=== PATIENT | male | born 1990 | race Hispanic/Latino ===

== ENCOUNTER 2017-02-13 14:00 | Emergency (ER) | payer OTHER ==
[2017-02-13 14:06] VITALS: TEMP 98; O2SAT 98; BMI 21.1
--- NOTE | 2017-02-13 14:18 | ED PDOC ---
Arrival/HPI - General Chief Complaint: Abnormal Skin Integrity Time Seen by Provider: 02/13/17 14:16 Historian: Patient - History of Present Illness Narrative History of Present Illness (Text): 02/13/17 14:17 26 y/o male, no pmh, nkda, last tetanus under 4 years ago, c/o rt. hand laceration by glass x 1 hour. Pt. was washing the dishes, one of the glass cup break and sliced the rt. hand, been bleeding, skin flap on top of the wound, no oozing/discharge, no fever or chills, no difficulty moving the finger, no numbness or tingling, no other medical or psychological complaints. Past Medical History - Provider Review Nursing Documentation Reviewed: Yes - Infectious Disease Hx of Infectious Diseases: None - Tetanus Immunization Tetanus Immunization: Unknown - Past Medical History Past Medical History: No Previous - Psychiatric Hx Anxiety: Yes Hx Depression: No Hx Emotional Abuse: No Hx Physical Abuse: No Hx Substance Use: No - Surgical History Hx Arthroscopy: Yes (right knee) Hx Orthopedic Surgery: Yes (r knee torn meniscus) - Anesthesia Hx Anesthesia: Yes Hx Anesthesia Reactions: (woke up during surgery) Hx Malignant Hyperthermia: No - Suicidal Assessment Feels Threatened In Home Enviroment: No Family/Social History - Physician Review Nursing Documentation Reviewed: Yes Family/Social History: Unknown Family HX Smoking Status: Never Smoked Hx Alcohol Use: Yes Frequency of alcohol use: Socially Hx Substance Use: No Hx Substance Use Treatment: No Allergies/Home Meds Allergies/Adverse Reactions: Allergies No Known Allergies Allergy (Verified 02/13/17 14:05) Review of Systems - Review of Systems Constitutional: absent: Fatigue, Fevers Eyes: absent: Vision Changes ENT: absent: Hearing Changes Respiratory: absent: SOB, Cough Cardiovascular: absent: Chest Pain Gastrointestinal: absent: Abdominal Pain, Nausea, Vomiting Skin: Laceration. absent: Rash, Pruritis, Abscess, Ulcer, Cellulitis Neurological: absent: Headache, Dizziness Physical Exam Vital Signs Reviewed: Yes Vital Signs Temp Pulse Resp BP Pulse Ox 02/13/17 14:02 98 F 87 18 130/91 H 98 Temperature: Afebrile Blood Pressure: Hypertensive Pulse: Regular Respiratory Rate: Normal Appearance: Positive for: Well-Appearing, Non-Toxic, Comfortable Pain Distress: Mild Mental Status: Positive for: Alert and Oriented X 3 - Systems Exam Head: Present: Atraumatic, Normocephalic Pupils: Present: PERRL Extroacular Muscles: Present: EOMI Conjunctiva: Present: Normal Mouth: Present: Moist Mucous Membranes Neck: Present: Normal Range of Motion Respiratory/Chest: Present: Clear to Auscultation, Good Air Exchange. No: Respiratory Distress, Accessory Muscle Use Cardiovascular: Present: Regular Rate and Rhythm, Normal S1, S2. No: Murmurs Abdomen: Present: Normal Bowel Sounds. No: Tenderness, Distention, Peritoneal Signs Back: Present: Normal Inspection Upper Extremity: Present: Normal Inspection, Other (Rt. hand dorsum 2nd MCPJ region with c-shaped laceration approx. 1.5cm in total, no oozing discharge, FROM without limitation, sensation intact, motor 5/5, +radial pulse, capillary refill< 2 seconds, neurovascular intact. ). No: Cyanosis, Edema Lower Extremity: Present: Normal Inspection. No: Edema Neurological: Present: GCS=15, Speech Normal, Motor Func Grossly Intact, Gait Normal, Memory Normal Skin: Present: Warm, Dry, Normal Color. No: Rashes Psychiatric: Present: Alert, Oriented x 3, Normal Insight, Normal Concentration Medical Decision Making ED Course and Treatment: 02/13/17 14:17 -xray/keflex -sensation intact, motor 5/5, wound irrigated with 1000cc of normal saline, clean with betadine, 1% lidocaine injected locally with 0.25cc, sterile procedure, 5-0 nylon made 8 sutures with good approximation, hemostasis obtained , bacitracin and gauze dressing applied, sensation intact, motor 5/5, no complication during the procedure. -Discharge home with keflex, bacitracin ointment, keep the dressing dry and clean for 2 days, wash with soap and water twice daily on day 3, sutures can be removed by day 10-11, avoid strenuous exercise or activity, follow up with your own pmd and hand specialist within 2 days, return to the ER for any new or worsening signs or symptoms. - RAD Interpretation Radiology Orders: 02/13/17 14:20 HAND RIGHT 3 VIEWS [RAD] Stat PROCEDURE: Right Hand Radiographs. HISTORY: rt. hand dorsum laceration by glass COMPARISON: None. FINDINGS: BONES: Normal. No fracture. JOINTS: Normal. No osteoarthritic changes. SOFT TISSUES: Normal. OTHER FINDINGS: No evidence of foreign body None. IMPRESSION: Negative study Emergency Registrar: Radiologist - Medication Orders Current Medication Orders: Discontinued Medications Cephalexin Monohydrate (Keflex) 500 mg PO STAT STA PRN Reason: Protocol Stop: 02/13/17 14:21 Last Admin: 02/13/17 14:40 Dose: 500 mg - PA / [employer]PER[employer] / Resident Statement / has reviewed & agrees with the documentation as recorded. Disposition/Present on Arrival - Present on Arrival Any Indicators Present on Arrival: No History of DVT/PE: No History of Uncontrolled Diabetes: No Urinary Catheter: No History of Decub. Ulcer: No History Surgical Site Infection Following: None - Disposition Have Diagnosis and Disposition been Completed?: Yes Diagnosis: Laceration of hand Disposition: HOME/ ROUTINE Disposition Time: 14:26 Patient Plan: Discharge Patient Problems: Current Active Problems Problem Status Onset Laceration of hand Acute Condition: GOOD Additional Instructions: -Discharge home with keflex, bacitracin ointment, keep the dressing dry and clean for 2 days, wash with soap and water twice daily on day 3, sutures can be removed by day 10-11, avoid strenuous exercise or activity, follow up with your own pmd and hand specialist within 2 days, return to the ER for any new or worsening signs or symptoms. Prescriptions: Bacitracin Ointment [Bacitracin] 1 appful TOP BID #15 g Cephalexin [Keflex] 500 mg PO TID #24 capsule Referrals: Daisha Frank MD [Non-Staff] - Follow up with primary [facility] at [facility] [Outside] - Follow up with primary Forms: WORK NOTE
--- NOTE | 2017-02-13 15:00 | RAD ---
PROCEDURE: Right Hand Radiographs. HISTORY: rt. hand dorsum laceration by glass COMPARISON: None. FINDINGS: BONES: Normal. No fracture. JOINTS: Normal. No osteoarthritic changes. SOFT TISSUES: Normal. OTHER FINDINGS: No evidence of foreign body None. IMPRESSION: Negative study
[2017-02-13 16:05] VITALS: BP 123/82; PULSE 75; RESP 19
== END 2017-02-13 16:07 | disposition home or self-care (01) ==
LOC: ED 14:00
DX: S61.411A Laceration without foreign body of right hand, initial encounter (principal); W25.XXXA Contact with sharp glass, initial encounter

== ENCOUNTER 2018-03-07 16:10 | Emergency (ER) | payer OTHER ==
[2018-03-07 16:30] VITALS: TEMP 98.6; BMI 22.4
[2018-03-07] MEDS ORDERED: TDAP Vaccine 0.5 mL Syr IM ONE (16:51)
--- NOTE | 2018-03-07 17:09 | ED PDOC ---
Arrival/HPI - General Chief Complaint: Trauma Time Seen by Provider: 03/07/18 16:21 Historian: Patient - History of Present Illness Narrative History of Present Illness (Text): 03/07/18 17:33 27 yo M, who works at [employer] reports sustaining head injury when he was walking through the garage door opening, he thought he was cleared to walk through however as he was walking he stood up too early and struck the top of his head on the door. Otherwise: (-) loss of consciousness, (-) nausea, (-) vomiting, (-) severe headache, (-) other injury, (-) neck pain, (-) subjective neurologic deficit, (-) anticoagulants. Has no history of prior significant head injury. Past Medical History - Infectious Disease Hx of Infectious Diseases: None - Tetanus Immunization Tetanus Immunization: Unknown - Past Medical History Past Medical History: No Previous - Psychiatric Hx Anxiety: Yes Hx Depression: No Hx Emotional Abuse: No Hx Physical Abuse: No Hx Substance Use: No - Surgical History Hx Arthroscopy: Yes (right knee) Hx Orthopedic Surgery: Yes (r knee torn meniscus) - Anesthesia Hx Anesthesia: Yes Hx Anesthesia Reactions: (woke up during surgery) Hx Malignant Hyperthermia: No - Suicidal Assessment Feels Threatened In Home Enviroment: No Family/Social History Family/Social History: No Known Family HX Smoking Status: Never Smoked Hx Alcohol Use: Yes Frequency of alcohol use: Socially Hx Substance Use: No Hx Substance Use Treatment: No Allergies/Home Meds Allergies/Adverse Reactions: Allergies No Known Allergies Allergy (Verified 02/13/17 14:05) Review of Systems - Review of Systems Constitutional: absent: Fatigue, Weight Change, Fevers Respiratory: absent: SOB, Cough, Sputum Cardiovascular: absent: Chest Pain, Palpitations Gastrointestinal: absent: Abdominal Pain, Stool Changes, Nausea, Vomiting Genitourinary Male: absent: Dysuria, Frequency Musculoskeletal: absent: Arthralgias, Back Pain, Neck Pain Skin: absent: Rash, Pruritis, Skin Lesions Neurological: Other (head injury). absent: Headache, Dizziness Physical Exam Vital Signs Temp Pulse Resp BP Pulse Ox 03/07/18 17:23 98.6 F 83 18 122/79 99 03/07/18 16:20 98.6 F 82 132/84 18 L Temperature: Afebrile Blood Pressure: Normal Pulse: Regular Respiratory Rate: Normal Appearance: Positive for: Well-Appearing, Non-Toxic, Comfortable Pain Distress: None Mental Status: Positive for: Alert and Oriented X 3 - Systems Exam Head: Present: Normocephalic, Abrasion (to the parietal scalp without hematoma) . No: Swelling, Ecchymosis, Laceration Pupils: Present: PERRL Extroacular Muscles: Present: EOMI Conjunctiva: Present: Normal Mouth: Present: Moist Mucous Membranes Neck: Present: Normal Range of Motion. No: MIDLINE TENDERNESS, Paraspinal Tenderness Respiratory/Chest: Present: Clear to Auscultation, Good Air Exchange. No: Respiratory Distress, Accessory Muscle Use Cardiovascular: Present: Regular Rate and Rhythm, Normal S1, S2. No: Murmurs Abdomen: No: Tenderness, Distention, Peritoneal Signs Back: Present: Normal Inspection. No: Midline Tenderness, Paraspinal Tenderness Upper Extremity: Present: Normal Inspection, Normal ROM, NORMAL PULSES, Neurovascularly Intact, Capillary Refill < 2s. No: Cyanosis, Edema, Tenderness , Swelling, Temperature Abnormalties Lower Extremity: Present: Normal Inspection, NORMAL PULSES, Normal ROM, Neurovascularly Intact, Capillary Refill < 2 s. No: Edema, Tenderness, Swelling , Temperature Abnormalties Neurological: Present: GCS=15, CN II-XII Intact, Speech Normal, Motor Func Grossly Intact, Normal Sensory Function Skin: Present: Warm, Dry, Normal Color. No: Rashes Psychiatric: Present: Alert, Oriented x 3, Normal Insight, Normal Concentration Medical Decision Making ED Course and Treatment: 03/07/18 17:37 Plan : - Tdap IM - Tylenol PO Patient instructed to follow-up with rosa'lakshmi brennan in 1-2 days without fail. Advised to take tylenol prn for pain. Return to the emergency room at any time for any new or worsening symptoms. Patient states he fully agrees with and understands discharge instructions. States that he agrees with the plan and disposition. Verbalized and repeated discharge instructions and plan. I have given the patient opportunity to ask any additional questions. - Medication Orders Current Medication Orders: Discontinued Medications Acetaminophen (Tylenol 325mg Tab) 650 mg PO STAT STA Stop: 03/07/18 16:52 Last Admin: 03/07/18 17:16 Dose: 650 mg Tetanus/Reduced Diphtheria/Acell Pertussis (Boostrix Vaccine Inj) 0.5 ml IM .ONCE ONE Stop: 03/07/18 16:52 Last Admin: 03/07/18 17:15 Dose: 0.5 ml Immunization Registry Document 03/07/18 17:15 HI (Rec: 03/07/18 17:15 HI [id number]) Immunization Registry Consent Date 03/07/18 - PA / POT LINER / Resident Statement / has reviewed & agrees with the documentation as recorded. Disposition/Present on Arrival - Present on Arrival Any Indicators Present on Arrival: No History of DVT/PE: No History of Uncontrolled Diabetes: No Urinary Catheter: No History of Decub. Ulcer: No History Surgical Site Infection Following: None - Disposition Have Diagnosis and Disposition been Completed?: Yes Diagnosis: Head injury Disposition: HOME/ ROUTINE Disposition Time: 16:45 Patient Plan: Discharge Condition: STABLE Discharge Instructions (ExitCare): Closed Head Injury Additional Instructions: Thank you for letting us take care of you today. You were treated for head injury. The emergency medical care you received today was directed at your acute symptoms. Take only tylenol for pain. It may take several days for your symptoms to resolve. Return to the Emergency Department if your symptoms worsen , do not improve, or if you have any other problems. Please contact workman's comp in 2 days for re-evaluation and follow up. Bring any paperwork you were given at discharge with you along with any medications you are taking to your follow up visit. Our treatment cannot replace ongoing medical care by a primary care provider (PCP) outside of the emergency department. Thank you for allowing the [facility] team to be part of your care today. Forms: [employer] (Chinese), WORK NOTE
[2018-03-07 17:24] VITALS: BP 122/79; PULSE 83; RESP 18; O2SAT 99
== END 2018-03-07 17:23 | disposition home or self-care (01) ==
LOC: ED 16:10
DX: S09.90XA Unspecified injury of head, initial encounter (principal); W22.09XA Striking against other stationary object, initial encounter; Y92.512 Supermarket, store or market as the place of occurrence of the external cause; Y99.0 Civilian activity done for income or pay; Z23 Encounter for immunization

== ENCOUNTER 2018-12-16 08:32 | Emergency (ER) | payer OTHER ==
[2018-12-16 08:32] VITALS: BMI 21.1
--- NOTE | 2018-12-16 08:47 | ED PDOC ---
Arrival/HPI - General Chief Complaint: Anxiety Time Seen by Provider: 12/16/18 08:36 Historian: Patient, Other (girlfriend) - History of Present Illness Time/Duration: Prior to Arrival Symptom Onset: Sudden Symptom Course: Improving Severity Level: Moderate Activities at Onset: Sleeping Associated Symptoms (Text): 12/16/18 08:45 Patient reports a history of anxiety. He is seen at [facility]. He has never been on medication before. He started taking a new medication several days ago for his anxiety. He woke up this morning took his pill went back to bed and ten or 15 minutes later had a severe anxiety attack accompanied by palpitations and shortness of breath which is currently improving. No chest pain. No nausea or vomiting. No diaphoresis. He denies depression. Denies suicidal or homicidal ideation. No visual or auditory hallucinations. Past Medical History - Infectious Disease Hx of Infectious Diseases: None - Tetanus Immunization Tetanus Immunization: Unknown - Past Medical History Past Medical History: No Previous - Psychiatric Hx Anxiety: Yes Hx Depression: No Hx Emotional Abuse: No Hx Physical Abuse: No Hx Substance Use: No - Surgical History Hx Arthroscopy: Yes (right knee) Hx Orthopedic Surgery: Yes (r knee torn meniscus) - Anesthesia Hx Anesthesia: Yes Hx Anesthesia Reactions: (woke up during surgery) Hx Malignant Hyperthermia: No - Suicidal Assessment Feels Threatened In Home Enviroment: No Family/Social History - Physician Review Nursing Documentation Reviewed: Yes Family/Social History: Unknown Family HX Smoking Status: Never Smoked Hx Alcohol Use: Yes Frequency of alcohol use: Socially Hx Substance Use: No Hx Substance Use Treatment: No Allergies/Home Meds Allergies/Adverse Reactions: Allergies No Known Allergies Allergy (Verified 12/16/18 08:38) Review of Systems - Physician Review All systems were reviewed & negative as marked: Yes - Review of Systems Respiratory: SOB. absent: Cough, Wheezing Cardiovascular: Palpitations. absent: Chest Pain, Syncope Gastrointestinal: absent: Abdominal Pain, Nausea, Vomiting Neurological: absent: Headache, Dizziness, Focal Weakness Psychiatric: Anxiety. absent: Depression, Suicidal Ideation Physical Exam Temperature: Afebrile Blood Pressure: Normal Pulse: Regular Respiratory Rate: Normal Appearance: Positive for: Well-Appearing, Non-Toxic, Comfortable, Other (anxious) Pain Distress: None Mental Status: Positive for: Alert and Oriented X 3 - Systems Exam Head: Present: Atraumatic, Normocephalic Pupils: Present: PERRL Extroacular Muscles: Present: EOMI Conjunctiva: Present: Normal Mouth: Present: Moist Mucous Membranes Pharnyx: No: ERYTHEMA, EXUDATE, TONSILS ENLARGED Neck: Present: Normal Range of Motion Respiratory/Chest: Present: Clear to Auscultation, Good Air Exchange. No: Respiratory Distress, Accessory Muscle Use Cardiovascular: Present: Regular Rate and Rhythm, Normal S1, S2. No: Murmurs Abdomen: No: Tenderness, Distention, Peritoneal Signs, Rebound, Guarding Upper Extremity: Present: Normal Inspection. No: Cyanosis, Edema Lower Extremity: Present: Normal Inspection. No: Edema Neurological: Present: GCS=15, CN II-XII Intact, Speech Normal, Motor Func Grossly Intact Skin: Present: Warm, Dry, Normal Color. No: Rashes Psychiatric: Present: Alert, Oriented x 3, Normal Insight, Normal Concentration, Normal Affect, Anxious. No: Agitated, Depressed Mood, Suicidal Ideation, Homicidal Ideation, Delusional, Hallucinations, Intoxicated, Lethargic Medical Decision Making ED Course and Treatment: 12/16/18 08:47 EKG shows normal sinus rhythm rate approximately 85 with nonspecific T waves and no acute ST or T wave changes. 12/16/18 11:36 Seen and evaluated by crisis who will discharge home. Follow-up with PMD and psychiatrist. Follow-up in ER as needed. - RAD Interpretation Radiology Orders: 12/16/18 08:44 CHEST PORTABLE [RAD] Stat Chest one view as read by the radiologist shows no infiltrate effusion or cardiomegaly. Injection Wax Molder: Radiologist Disposition/Present on Arrival - Present on Arrival Any Indicators Present on Arrival: No History of DVT/PE: No History of Uncontrolled Diabetes: No Urinary Catheter: No History of Decub. Ulcer: No History Surgical Site Infection Following: None - Disposition Have Diagnosis and Disposition been Completed?: Yes Diagnosis: Palpitations, Anxiety, Dyspnea Disposition: HOME/ ROUTINE Disposition Time: 11:37 Patient Plan: Discharge Condition: GOOD Discharge Instructions (ExitCare): Chest Pain, Palpitations, Anxiety, Adult (DC), Shortness of Breath (Dyspnea) (DC), Chest Pain (ED) Additional Instructions: Follow-up with PMD and psychiatrist. Follow-up in ER as needed. Forms: [employer] ([place]), WORK NOTE
[2018-12-16 09:16] VITALS: O2SAT 98
[2018-12-16 09:20] LABS: BASO # 0.02 K/mm3 (0.0-2.0); BASO % 0.3 % (0.0-3.0); EOS # 0.3 (0.0-0.7); EOS % 4.5 % (1.5-5.0); HEMOGLOBIN 13.5 g/dL (14.0-18.0); LYMPH # 2.7 (1.2-3.4); LYMPH % 41.9 % (22.0-35.0); MEAN CORPUSCULAR HEMOGLOBIN 28.3 pg (25.0-35.0); MEAN CORPUSCULAR HGB CONC 34.1 g/dl (31.0-37.0); MEAN PLATELET VOLUME 10.5 fl (7.0-11.0); MONO # 0.4 (0.1-0.6); MONO % 6.1 % (1.0-6.0); RBC 4.77 10^6/uL (3.5-6.1); RED CELL DISTRIBUTION WIDTH 12.9 % (11.5-14.5); WHITE BLOOD COUNT 6.4 10^3/uL (4.5-11.0)
[2018-12-16 09:34] LABS: ACETAMINOPHEN < 10.0 ug/ml (10.0-20.0); SALICYLATE < 1 mg/dL (2.0-20.0)
[2018-12-16 09:56] LABS: ALB/GLOB RATIO 1.4 (1.1-1.8); ALBUMIN 4.3 g/dL (3.0-4.8); ALT/SGPT 23 U/L (7-56); AST/SGOT 21 U/L (17-59); BLOOD UREA NITROGEN 15 mg/dL (7-21); CALCIUM 9.2 mg/dL (8.4-10.5); GFR NON-AFRICAN AMERICAN > 60
[2018-12-16 10:39] LABS: URINE BILIRUBIN NEGATIVE (NEGATIVE); URINE BLOOD NEGATIVE (NEGATIVE); URINE GLUCOSE (UA) NEGATIVE (NEGATIVE); URINE LEUKOCYTE ESTERASE NEGATIVE Leu/uL (NEGATIVE); URINE PROTEIN NEGATIVE mg/dL (<30 mg/dL); URINE UROBILINOGEN 0.2 E.U./dL (<1 E.U./dL)
[2018-12-16 10:42] LABS: URINE APPEARANCE CLEAR (CLEAR); URINE COLOR YELLOW (YELLOW)
--- NOTE | 2018-12-16 11:05 | RAD ---
Date of service: 12/16/2018 HISTORY: palpitations COMPARISON: 04/06/2012 FINDINGS: LUNGS: The lungs are well inflated and clear. PLEURA: No pleural effusions or pneumothorax. CARDIOVASCULAR: The heart is normal in size. No aortic atherosclerotic calcifications present. OSSEOUS STRUCTURES: Within normal limits for the patient's age. VISUALIZED UPPER ABDOMEN: Normal. OTHER FINDINGS: None. IMPRESSION: No active pulmonary disease.
[2018-12-16 11:32] LABS: BARBITURATES, UR NEGATIVE (NEGATIVE); BENZODIAZEPINES, UR NEGATIVE (NEGATIVE); OPIATES, UR NEGATIVE (NEGATIVE); PHENCYCLIDINE, UR NEGATIVE (NEGATIVE)
[2018-12-16 12:11] VITALS: BP 128/86; PULSE 75; RESP 19; TEMP 98
--- NOTE | 2018-12-17 05:35 | CARD ---
APPROVED REPORT Date of service: 12/16/2018 EKG Measurement Heart [id number] <Conclusion> Normal sinus rhythm Nonspecific T wave abnormality Abnormal ECG
--- NOTE | 2018-12-18 07:15 | CARD ---
APPROVED REPORT Date of service: 12/16/2018 EKG Measurement Heart [id number] <Conclusion> Normal sinus rhythm with sinus arrhythmia Normal ECG
== END 2018-12-16 12:11 | disposition home or self-care (01) ==
LOC: ED 08:32
DX: F41.9 Anxiety disorder, unspecified (principal); R00.2 Palpitations; R06.00 Dyspnea, unspecified

== ENCOUNTER 2018-12-30 02:01 | Inpatient (IN) | payer OTHER | END 2018-12-31 16:58 | disposition home or self-care (01) | LOC: ED 02:01 → ERH 04:40 → 2RSO 08:31 ==